=== PATIENT | male | born 1960 | race Caucasian/White ===

== ENCOUNTER 2019-09-22 22:16 | Observation (INO) | payer MEDICARE, SELFPAY ==
--- NOTE | 2019-09-22 22:14 | ECG_ITS ---
APPROVED REPORT Exam: Resting ECG HR:82 bpm ECG Measurements Heart Rate 82 AXES DC 140 P 60 QRSd 76 QRS 62 QT 376 T 58 QTc 439 <Conclusion> Normal sinus rhythm Normal ECG Electronically signed by : Kin Malone, 09/27/2019 13:55:10
[2019-09-22 22:19] VITALS: BP 165/104; PULSE 73; RESP 23; TEMP 36.9; O2SAT 98; BMI 19.8
--- NOTE | 2019-09-22 22:22 | HMH.EDGENADL ---
ED Disposition Clinical Impression: Precordial chest pain, Syncope and collapse Disposition: Admitted as Observation Condition on Discharge: Good - Critical Care Critical Care Time: No Attestation: On , the high probability of a clinically significant, sudden or life threatening deterioration of the following system(s) required my full and direct attention, intervention and personal management. The time I documented below is in addition to time spent performing reported procedures but includes the following listed in this critical care notation. Medical Decision Making - Medical Records Medical records reviewed: Yes: I reviewed the patient's medical records. - Be Inquiry Pt receiving controlled substance: No Vital Signs: 09/22/19 22:19 09/22/19 23:21 09/22/19 23:48 Temperature 98.4 F 98.1 F Temperature Source Oral Oral Pulse Rate 85 Pulse Rate [Right Brachial] 73 74 Respiratory Rate 23 18 18 Blood Pressure 152/89 H Blood Pressure [Right Arm] 165/104 H 135/100 H Blood Pressure Mean [Right Arm] 124 111 Blood Pressure Source Automatic Cuff Blood Pressure Source [Right Arm] Automatic Cuff Blood Pressure Position Sitting Blood Pressure Position [Right Arm] Sitting Supine 02 Sat by Pulse Oximetry 98 92 L Oxygen Delivery Method Room Air Room Air Room Air 09/23/19 00:16 Temperature 97.6 F Temperature Source Oral Pulse Rate Pulse Rate [Right Brachial] 78 Respiratory Rate 18 Blood Pressure Blood Pressure [Right Arm] 145/96 H Blood Pressure Mean [Right Arm] 112 Blood Pressure Source Blood Pressure Source [Right Arm] Automatic Cuff Blood Pressure Position Blood Pressure Position [Right Arm] Sitting 02 Sat by Pulse Oximetry 96 Oxygen Delivery Method Room Air - Lab Data Lab results reviewed: Yes: I reviewed the patient's lab results. Lab Results 09/22/19 21:15: WBC 9.7, RBC 5.81, Hgb 17.6, Hct 49.7, MCV 85.5, MCH 30.2, MCHC 35.4, RDW 13.8, Plt Count 228, MPV 7.7, Neut % (Auto) 66.3, Lymph % (Auto) 25.3, [place] % (Auto) 4.8, Eos % (Auto) 2.1, Baso % (Auto) 1.4, Neut # (Auto) 6.5, Lymph # (Auto) 2.5, [place] # (Auto) 0.5, Eos # (Auto) 0.2, Baso # (Auto) 0.1 09/22/19 21:15: Sodium 135 L, Potassium 5.0, Chloride 102, Carbon Dioxide 27, Anion Gap 11.0, BUN 20, Creatinine 1.00, Estimated Creat Clear 66, Estimated GFR 76, Est GFR ( Amer) 93, Glucose 96, Calcium 10.0, Troponin I < 0.01 Result diagrams: 09/22/19 21:15 09/22/19 21:15 Orders (Tests/Meds): ED MEDICATIONS Generic Name Dose Route Start Last Admin Trade Name Freq PRN Reason Stop Dose Admin Nicotine 21 mg 09/22/19 23:41 Nicoderm 21mg/24hr Patch TD 10/22/19 23:40 DAILYP PRN Nicotine Cravings Discontinued Medications Generic Name Dose Route Start Last Admin Trade Name Freq PRN Reason Stop Dose Admin Aspirin 324 mg 09/22/19 22:55 09/22/19 22:56 Aspirin 81mg Chewable Tablet PO 09/22/19 22:56 324 mg ONCE ONE Administration Carvedilol 6.25 mg 09/23/19 23:21 Coreg 6.25mg Tablet PO 09/23/19 23:22 ONCE ONE ORDERS Category Date Time Status Consult to Cardiology [CONS] Routine Cons 09/22/19 23:41 Active XR chest 2V Stat Exams 09/22/19 22:23 Taken Troponin I Q3H Lab 09/23/19 04:30 Ordered - Radiology Data #1 Image(s): Chest Image Reviewed: Yes I reviewed the patient's radiology image Preliminary Findings: Normal/NAD - ECG Data Tracing #1 EKG interpreted by Godwin Jordan MD: Rhythm: sinus Rate: 82 [place]: normal Ectopy: none Conduction: normal ST Segment Changes: none T Wave Changes: none Q Waves: none No evidence of acute ischemia or injury Normal electrocardiogram - Physician Consults Physician Consulted: Jayy Time: 23:20 Reason -: Admission Comment/Response: Agrees to admit the patient to the hospital. We discussed the patient's clinical information, including history, exam, laboratory and radiology results and ED course. Per hos
--- NOTE | 2019-09-22 22:23 | XR_ITS ---
PROCEDURE: XR CHEST 2V CLINICAL HISTORY: chest pain Smoker COMPARISON: No exams were available for comparison FINDINGS: The cardiomediastinal silhouette and pulmonary vascularity are within normal limits. Changes of COPD. No lobar consolidation or collapse No acute bony abnormalities. IMPRESSION: COPD otherwise negative Dictated by: Desean Smith MD 09/23/2019 06:33 Electronically signed by Desean Smith MD in [place] 09/23/2019 06:33
--- NOTE | 2019-09-22 22:26 | PC.NURSE ---
md at bedside. to put in additional orders after assess,ment
--- NOTE | 2019-09-22 22:35 | PC.NURSE ---
pt to xray
[2019-09-22 22:41] LABS: Basophils # 0.1 K/mm3 (0-0.2); Basophils % 1.4 % (0.1-2.0); Eosinophils # 0.2 K/mm3 (0.0-0.4); Eosinophils % 2.1 % (0.1-12.0); Hematocrit 49.7 % (42.0-52.0); Hemoglobin 17.6 g/dL (14.1-18.0); Lymphocytes # 2.5 K/mm3 (0.7-4.5); Lymphocytes % 25.3 % (10-50); Mean Corpuscular HGB Conc 35.4 g/dL (31.8-35.4); Mean Corpuscular Hemoglobin 30.2 pg (27.0-31.2); Mean Corpuscular Volume 85.5 fl (80-94); Mean Platelet Volume 7.7 fl (7.4-10.4); Monocytes # 0.5 K/mm3 (0.1-1.0); Monocytes % 4.8 % (1.7-9.3); Neutrophils # 6.5 K/mm3 (1.8-7.8); Neutrophils % 66.3 % (37.0-80.0); Platelet Count 228 K/mm3 (142-424); Red Blood Count 5.81 M/mm3 (4.60-6.20); Red Cell Distribution Width 13.8 % (11.5-17.5); White Blood Count 9.7 K/mm3 (4.8-10.8)
[2019-09-22 22:42] LABS: Chloride 102 mmol/L (98-107); Sodium 135 mmol/L (136-145)
[2019-09-22 22:45] LABS: Blood Urea Nitrogen 20 mg/dl (9-20); Carbon Dioxide 27 mmol/L (22.0-30.0); Creatinine Clearance Estimated 66 mL/min (50-200); Estimated Glomerular Filt Rate 76 ml/min (>60); GFR (African American) 93 ML/MIN (>60); Glucose 96 mg/dl (74-100)
[2019-09-22 23:11] LABS: Troponin I < 0.01 ng/ml (0.00-0.034)
--- NOTE | 2019-09-22 23:13 | PC.NURSE ---
paged dr chapman industrial relations representative for dr monzon (service) at this time. pt has no pcp.
[2019-09-22 23:21] VITALS: BP 135/100; PULSE 74; RESP 18; O2SAT 92
--- NOTE | 2019-09-22 23:21 | PC.NURSE ---
admitted to 208 per marina arnoldrn ambulatory. spoke with shannon in registration. advised of admit status, mulberry to mulberry, chest pain and syncope for diagnosis and observation.
[2019-09-22 23:48] VITALS: BP 152/89; PULSE 85; RESP 18; TEMP 36.7; O2SAT 98
[2019-09-23] VITALS (16 sets, daily range): BP systolic 96–145; BP diastolic 43–96; PULSE 60–80; RESP 16–20; TEMP 36.3–36.7; O2SAT 92–96; BMI 23.0
--- NOTE | 2019-09-23 | IR_ITS ---
APPROVED REPORT Patient Location: Inpatient PROCEDURES Left heart catheterization Left ventriculogram Selective coronary angiogram INDICATION Unstable angina, Syncope Informed consent was obtained prior to the procedure. COMPLICATIONS NONE Estimated Blood Loss: LESS THAN 10 ML TECHNIQUE One percent lidocaine used to anesthetize the right anterior aspect of the wrist. The right radial artery was accessed via the Seldinger technique. A 6 [place] sheath was placed in the right radial artery. 2.5 mg of verapamil, 800 mcg of nitroglycerin, 1mg Lidocaine and 5000 U Heparin were given through the arterial sheath. The trap catheter was also used to perform left heart catheterization, left ventriculogram and selective coronary angiogram. At the end of the procedure the sheath was removed good hemostasis was achieved using Traclet band, patient was transferred to the postop holding area in stable condition. ANGIOGRAPHIC RESULTS The left main artery Normal The left anterior descending artery Is proximally normal and has a mid vessel concentric 30% stenosis with mild 10% luminal irregularities The circumflex artery Nondominant large and normal The right coronary artery Large dominant and normal The [place] ventriculogram reveals Normal 65% The left ventricular end-diastolic pressure 10 mmHg IMPRESSION Mild mid LAD disease Normal ejection fraction Normal left ventricular diastolic pressure PLAN 1. Evaluation of noncardiac etiologies 2. Risk factor modification 3. Medical management Electronically signed by : Angel Cervantes, 09/23/2019 12:46:22
--- NOTE | 2019-09-23 00:16 | PC.NURSE ---
pt arrived to floor via wheelchair from ED
[2019-09-23 02:05] LABS: Troponin I < 0.01 ng/ml (0.00-0.034)
--- NOTE | 2019-09-23 03:55 | PC.NURSE ---
Pt to floor from ED via w/c at 0016. First thing pt asked, Where do you go smoke here? Discussed smoking policy as well as monitoring pt's heart could not be done if he wasn't on med/surg floor. Pt reported smoking < 1 ppd for 50 years, son who was in room, announced that was not true, he usually smokes at least 2 ppd. Lung coburn found with posterior left coburn having inspiratory wheezes. Deep, nonproductive smoker's cough noted. Advised cardiology consult in am and needed a shower for preparation which he agreed to. 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 In discussion concerning home medications, pt reported, I don't take any, I can't afford to get them. He is a poor historian, unable to given dates to diagnoses. Reported history of chest pain, They gave me nitro under my tongue 4 times and that was all they could give me. Those doctors up there said I had heart failure and I had a small heart attack. [place]. S1 S2 auscultated with no gallop or murmur noted. NSR on tele, no c/o chest pain since arriving to med/surg. Discussed admission folder and polices. Pt presently sleeping in supine position with no objective s/s of pain or discomfort, vital signs stable, monitoring continues.
[2019-09-23 05:14] LABS: Troponin I < 0.01 ng/ml (0.00-0.034)
--- NOTE | 2019-09-23 07:15 | P.CONPHA_ITS ---
[facility] Pharmacy VTE Monitoring - Patient Demographics Admission date: 09/22/19 Report Date: 09/23/19 Time: 07:15 Allergies/Adverse Reactions: Patient Allergies Codeine Allergy (Unknown, Uncoded 04/21/17 15:03) Height: 1.8 m Weight: 74.871 kg Patient Problems: Current Active Problems Precordial chest pain (Acute) Syncope and collapse (Acute) - VTE Risk Labs: VTE Related Lab Results Hgb 17.6 g/dL (14.1-18.0) 09/22/19 21:15 Hct 49.7 % (42.0-52.0) 09/22/19 21:15 Plt Count 228 K/mm3 (142-424) 09/22/19 21:15 BUN 20 mg/dl (9-20) 09/22/19 21:15 Creatinine 1.00 mg/dl (0.66-1.25) 09/22/19 21:15 Estimated Creat Clear 66 mL/min (50-200) 09/22/19 21:15 VTE Score: 3 VTE Risk Level: Low Risk - Prophylaxis VTE Prophylaxis Ordered?: Yes Types of VTE Prophylaxis: TEDS Knee High Location of Applied Device: Bilateral Lower Extremeties - VTE Diagnosis Confirmed Treatment or plan recommended: Continue Current Treatment
--- NOTE | 2019-09-23 07:44 | HMH.CNCARD ---
History of Present Illness Consult date: 09/23/19 Requesting physician: Wes Hope Consult reason: chest pain Chief complaint: chest pain, syncope Additional Medical History:: 1. Tobacco use, started age 8, smokes up to 1 pack/day A. COPD 2. Reported history of myocardial infarction in the past and congestive heart failure, documents unavailable 3. History of elevated blood pressure, on no medications 4. History of left eye trauma 1995 with subsequent loss of vision History of present illness: 58-year-old white male presented to the emergency department via private vehicle for episode of syncope. Patient was watching his son work on a car when the son reported looking over and seeing the patient on the ground face down. Patient relates he had about 30 minutes of intermittent sharp substernal chest pain without radiation or diaphoresis. He did relate some shortness of breath and nausea. EMS initially contacted and evaluate the patient on the scene but he refused transportation and evaluation at that point. Reportedly the son was able to talk him into coming in for further evaluation. ER evaluation showed initially a normal troponin and EKG with no acute ST segment changes. Chest x-ray showed COPD with no acute changes. Follow-up troponins overnight have also returned normal. Blood pressure in the ER was noted to be markedly elevated and patient was started on carvedilol therapy with subsequent significant drop in blood pressure. Patient denies any further chest pain overnight. Cardiology consulted for evaluation and recommendations. Patient denies history of diabetes but does relate a family history of heart disease in his mother. He has never been told he was hyperlipidemic. He has a history of elevated blood pressure but has never taken blood pressure medications due to the cost. [facility] History Medical History: Reports:: Congestive Heart Failure Denies:: Cancer, Diabetes Mellitus Type 1, Diabetes Mellitus Type 2, MRSA *Have you ever received a pneumonia vaccine?: Yes *Have you received a flu vaccine this season?: No (2017) Other Surgeries: Yes: EGD ( Quite a few years ago ) Amputation: No Fractures: Yes (right pinkie boxers fracture) - *Social History Educational Level: Attended High School Smoking Status: Current every day smoker Tobacco Type: cigarettes # Packs/Day (cigarettes): 1 Alcohol Intake: never *Occupational Status:: retired, disabled *Travel in the last 8 weeks: None Family Hx:: Cancer Meds Home Medications Medication Instructions Recorded Confirmed Type No Known Home Medications 09/22/19 09/22/19 History Allergies Allergy/AdvReac Type Severity Reaction Status Date / Time Codeine Allergy Unknown Uncoded 04/21/17 15:03 Review of Systems - *Cardiovascular Reports chest pain - *Respiratory Reports cough - *Gastrointestinal Denies loose stools, Denies nausea, Denies vomiting - *Genitourinary Denies blood in urine - *Musculoskeletal Reports back pain, Denies joint pain - *Neurologic Reports fainting, Denies tingling, Denies weakness Exam Vital signs and Labs for Last 24 Hours: Temp Pulse Resp BP Pulse Ox 97.4 F L 74 16 100/64 L 92 L 09/23/19 04:00 09/23/19 04:00 09/23/19 04:00 09/23/19 04:00 09/23/19 04:00 Laboratory Results - last 24 hr 09/22/19 21:15: WBC 9.7, RBC 5.81, Hgb 17.6, Hct 49.7, MCV 85.5, MCH 30.2, MCHC 35.4, RDW 13.8, Plt Count 228, MPV 7.7, Neut % (Auto) 66.3, Lymph % (Auto) 25.3, [place] % (Auto) 4.8, Eos % (Auto) 2.1, Baso % (Auto) 1.4, Neut # (Auto) 6.5, Lymph # (Auto) 2.5, [place] # (Auto) 0.5, Eos # (Auto) 0.2, Baso # (Auto) 0.1 09/22/19 21:15: Sodium 135 L, Potassium 5.0, Chloride 102, Carbon Dioxide 27, Anion Gap 11.0, BUN 20, Creatinine 1.00, Estimated Creat Clear 66, Estimated GFR 76, Est GFR ( Amer) 93, Glucose 96, Calcium 10.0, Troponin I < 0.01 09/23/19 01:30: Troponin I < 0.01 09/23/19 04:30: Troponin I < 0.01 I & O for Las
--- NOTE | 2019-09-23 07:55 | CA_ITS ---
APPROVED REPORT EXAM: Comprehensive 2D, Doppler, and color-flow Echocardiogram Road Machinery Inspector: Elizabeth Baeza RT(R) Ht: 5 ft 11 in Wt: 165lbs BSA: 1.94 BP: 100/64 mmHg Indications: CP, COPD, smoker, syncope, HTN, family history HD, hx of [place], CHF 2D Dimensions LVOT 1.95 cm (M/F) 1.5-2.5 M-Mode Dimensions RVDd 2.78 cm (0.9-2.6) LVDd 4.73 cm (3.5-5.7) LVDs 3.35 cm (3.5-5.7) IVSd 0.91 cm (0.6-1.1) PWd 0.76 cm (0.6-1.1) EF (Teich) 55.90% FS 29.20% EDV (Teich) 103.90 mL ESV (Teich) 45.80 mL LV Diastology E/A Ratio 0.58 Mitral Valve MV A Velocity 71.00 (40-130 cm/s) Left Ventricle Left atrium is mildly enlarged, left ventricle is normal size, mild concentric left ventricular hypertrophy, there is moderate hypokinesis involving the inferior basal wall. Grade 1 diastolic dysfunction seen without tissue Doppler evidence of raise left atrial pressure. Estimated ejection fraction approximately 50% Right Ventricle Right atrium and right ventricle are mildly enlarged with normal contractility. Aortic Valve Aortic valve is minimally thickened and fibrosed. There is no aortic stenosis or aortic insufficiency. Mitral Valve Mitral valve is grossly normal, there is mild mitral regurgitation. Tricuspid Valve Tricuspid valve is grossly normal, there is mild tricuspid regurgitation. Tricuspid regurgitation jet velocity is inadequate for calculation of the right ventricular systolic pressure. Pulmonic Valve Pulmonic valve is poorly visualized. Great Vessels Aortic root is normal size. Pericardium No significant pericardial effusion noted. Conclusion 1. Normal left ventricular size, mild concentric left ventricular hypertrophy, visually estimated ejection fraction 50% with segmental wall motion abnormality described above, grade 1 diastolic dysfunction seen without tissue Doppler evidence of raise left atrial pressure. 2. Mildly enlarged right ventricle with normal contractility. 3. Mild mitral and tricuspid regurgitation. 4. No significant pericardial effusion noted. Electronically signed by : Bharat Faust, 09/23/2019 13:12:41
--- NOTE | 2019-09-23 08:26 | HMH.HP ---
*Admission Date: 09/22/19 <DannCandelaria duarte 09/23/19 08:30> *Chief complaint: chest pain, syncope <DannGuicho duartea 09/23/19 08:30> *History of present illness: Mr. Keating is a 58-year-old male who presented to the emergency department via private vehicle for an episode of chest pain and syncope. According to the patient, he was watching his son fix a vehicle and he began having midsternal chest pain and got dizzy. He then fell to the ground. He is unsure if he completely lost consciousness. His son found him on the ground. He states he continued to have chest pain for approximately 30 minutes. It was accompanied by shortness of breath and nausea but no diaphoresis. The pain did not radiate to his arms or up his neck. He refused transport to the emergency room by EMS, therefore his son brought him to be evaluated. He had an EKG showing no acute ST segment changes and a chest x-ray showing COPD with nothing acute. All of his troponins have returned normal. His blood pressure in the ER was elevated and he was started on carvedilol. His blood pressure has improved. He states he has had no further chest pain. He states years ago he did have a similar episode of chest pain and presented to an emergency room. He was told at that time he had a heart attack but he never saw a screen making supervisor or followed up with anyone. He has also been told in the past that he has high blood pressure, hyperlipidemia, and CHF. He currently takes no medicines due to cost. At this time, he is pain-free. He has had no further episodes of chest pain. His shortness of breath is at baseline and is no longer nauseated. He does have a family history of CHF, cancer, and diabetes. Cardiology was consulted. <Candelaria Fischer 09/23/19 08:42> [facility] History I have reviewed the patient's past medical history: Yes <Candelaria Fischer 09/23/19 08:42> Medical History: Reports:: Congestive Heart Failure, Hyperlipidemia, Hypertension Denies:: Cancer, Diabetes Mellitus Type 1, Diabetes Mellitus Type 2, MRSA <Candelaria Fischer 09/23/19 08:42> *Have you ever received a pneumonia vaccine?: Yes <Candelaria Fischer 09/23/19 08:30> *Have you received a flu vaccine this season?: No (2018) <Candelaria Fischer 09/23/19 08:30> Other Surgeries: Yes: EGD ( Quite a few years ago ) <Candelaria Fischer 09/23/19 08:30> Amputation: No <Candelaria Fischer 09/23/19 08:30> Fractures: Yes (right 5th digit boxers fracture) <Candelaria Fischer 09/23/19 08:42> Comment: Left eye surgery - blind in left eye <Candelaria Fischer 09/23/19 08:42> - *Social History Educational Level: Attended High School <Candelaria Fischer 09/23/19 08:30> Smoking Status: Current every day smoker <Candelaria Fischer 09/23/19 08:30> Tobacco Type: cigarettes <Candelaria Fischer 09/23/19 08:30> # Packs/Day (cigarettes): 1 <Candelaria Fischer 09/23/19 08:30> Alcohol Intake: never <Candelaria Fischer 09/23/19 08:30> *Occupational Status:: retired, disabled <Candelaria Fischer 09/23/19 08:30> *Travel in the last 8 weeks: None <Candelaria Fischer 09/23/19 08:30> Family Hx:: Cancer, Diabetes, Other (CHF) <Candelaria Fischer 09/23/19 08:42> Review of Systems - Constitutional Denies body ache(s), Denies chills, Denies fever(s), Denies weakness <Candelaria Fischer 09/23/19 08:42> - Eyes Denies blurry vision, Denies double vision <Candelaria Fischer 09/23/19 08:42> - ENT Reports nasal congestion, Denies sore throat <Candelaria Fischer 09/23/19 08:42> - *Cardiovascular Reports chest pain, Reports shortness of breath, Denies excessive sweating, Denies leg swelling, Denies rapid, pounding, or irregular heartbeat <Candelaria Fischer 09/23/19 08:42> - *Respiratory Reports chest congestion, Reports cough, Reports shortness of breath <Candelaria Fischer 09/23/19 08:42> - *Gastrointestinal Reports nausea, Denies abdominal pain, Denies loose stools, Denies vomiting <Candelaria Fischer 09/23/19 08:42> - *Genitourinary Denies difficulty urinating, Denies painful ur
--- NOTE | 2019-09-23 16:31 | P.PN_ITS ---
Internal Medicine - PN: Subj *Date: 09/23/19 *Time: 16:31 Interval history: Patient had left heart cath today which showed non obstructing CAD, 30% blockage. Pt is anxious to go home. Exam Vital signs and Labs for Last 24 Hours: Temp Pulse Resp BP Pulse Ox 97.9 F 64 18 104/43 L 94 L 09/23/19 16:15 09/23/19 16:15 09/23/19 16:15 09/23/19 16:15 09/23/19 16:15 Laboratory Results - last 24 hr 09/22/19 21:15: WBC 9.7, RBC 5.81, Hgb 17.6, Hct 49.7, MCV 85.5, MCH 30.2, MCHC 35.4, RDW 13.8, Plt Count 228, MPV 7.7, Neut % (Auto) 66.3, Lymph % (Auto) 25.3, [place] % (Auto) 4.8, Eos % (Auto) 2.1, Baso % (Auto) 1.4, Neut # (Auto) 6.5, Lymph # (Auto) 2.5, [place] # (Auto) 0.5, Eos # (Auto) 0.2, Baso # (Auto) 0.1 09/22/19 21:15: Sodium 135 L, Potassium 5.0, Chloride 102, Carbon Dioxide 27, Anion Gap 11.0, BUN 20, Creatinine 1.00, Estimated Creat Clear 66, Estimated GFR 76, Est GFR ( Amer) 93, Glucose 96, Calcium 10.0, Troponin I < 0.01 09/23/19 01:30: Troponin I < 0.01 09/23/19 04:30: Troponin I < 0.01 I & O for Last 24 hours: Intake & Output 09/20/19 09/21/19 09/22/19 09/23/19 23:59 23:59 23:59 23:59 Intake Total 720 / 720 Balance 720 / 720 Weight 130 lb 165 lb 1 oz - Constitutional no acute distress (alert, Holter monitor leads are being placed now) Assessment and Plan (1) Precordial chest pain Current visit: Yes Status: Acute Category: Medical Code(s): R07.2 - Precordial pain (2) Syncope and collapse Current visit: Yes Status: Acute Category: Medical Code(s): R55 - Syncope and collapse (3) Elevated blood pressure reading Current visit: Yes Status: Acute Category: Medical Code(s): R03.0 - Elevated blood-pressure reading, without diagnosis of hypertension (4) Tobacco use Current visit: Yes Status: Acute Category: Social Hx Code(s): Z72.0 - Tobacco use (5) COPD (chronic obstructive pulmonary disease) Current visit: Yes Status: Acute Category: Medical Code(s): J44.9 - Chronic obstructive pulmonary disease, unspecified - Assessment and plan all Dx Assessment and Plan for all problems:: Cardiology wants to discharge patient today after Holter monitor is placed. Will continue low dose Toprol XL, f/u with cardiology in 2 weeks.
--- NOTE | 2019-09-23 16:34 | HMH.DCSUM ---
General - General Admission date:: 09/23/19 Discharge date: 09/23/19 HPI HPI: Mr. Keating is a 58-year-old male who presented to the emergency department via private vehicle for an episode of chest pain and syncope. According to the patient, he was watching his son fix a vehicle and he began having midsternal chest pain and got dizzy. He then fell to the ground. He is unsure if he completely lost consciousness. His son found him on the ground. He states he continued to have chest pain for approximately 30 minutes. It was accompanied by shortness of breath and nausea but no diaphoresis. The pain did not radiate to his arms or up his neck. He refused transport to the emergency room by EMS, therefore his son brought him to be evaluated. He had an EKG showing no acute ST segment changes and a chest x-ray showing COPD with nothing acute. All of his troponins have returned normal. His blood pressure in the ER was elevated and he was started on carvedilol. His blood pressure has improved. He states he has had no further chest pain. He states years ago he did have a similar episode of chest pain and presented to an emergency room. He was told at that time he had a heart attack but he never saw a instrumentation technologist or followed up with anyone. He has also been told in the past that he has high blood pressure, hyperlipidemia, and CHF. He currently takes no medicines due to cost. At this time, he is pain-free. He has had no further episodes of chest pain. His shortness of breath is at baseline and is no longer nauseated. He does have a family history of CHF, cancer, and diabetes. Cardiology was consulted. Hospital Course Hospital Course: The patient was given a dose of Coreg with some improvement in his blood pressure and was started on metoprolol 25 mg daily. Cardiology felt he would need a heart cath and this was performed. It showed only mild mid LAD disease with a normal ejection fraction. They recommended risk factor modification. His echo showed moderate inferior wall hypokinesis with a normal EF of 50%. Cardiology recommended both losartan 25 mg daily and metoprolol succinate ER 25 mg daily along with an aspirin 81 mg daily for coronary artery disease. They also recommended a 48-hour Holter monitor to assess for arrhythmias as the source of his syncope. The patient's pressures were very low after his heart cath and it was decided to discharge him only on metoprolol and aspirin until cardiology follow-up. He will see cardiology in 1 to 2 weeks. Objective Vital signs: Temp Pulse Resp BP Pulse Ox 97.9 F 64 18 104/43 L 94 L 09/23/19 16:15 09/23/19 16:15 09/23/19 16:15 09/23/19 16:15 09/23/19 16:15 Narrative: - *Routine HEENT Exam Head: Present: normocephalic Eye: Present: EOMI, PERRL ENT: Present: mucous membranes moist - *Routine Neck Exam Present: supple. Absent: lymphadenopathy - *Routine Respiratory Exam Present: CTA bilaterally - *Routine Cardiovascular Exam Present: RRR - *Routine Abdominal Exam Present: soft, normoactive bowel sounds. Absent: tenderness - *Routine Extremities Exam Absent: cyanosis, clubbing, edema - *Routine Skin Exam Present: warm. Absent: rash - *Routine Neurological Exam Present: alert, oriented X3 Results Labs on day of discharge: Labs from last 24 hours 09/23/19 09/23/19 09/22/19 04:30 01:30 21:15 WBC RBC Hgb Hct MCV MCH MCHC RDW Plt Count MPV Neut % (Auto) Lymph % (Auto) [place] % (Auto) Eos % (Auto) Baso % (Auto) Neut # (Auto) Lymph # (Auto) [place] # (Auto) Eos # (Auto) Baso # (Auto) Sodium 135 L Potassium 5.0 Chloride 102 Carbon Dioxide 27 Anion Gap 11.0 BUN 20 Creatinine 1.00 Estimated Creat Clear 66 Estimated GFR 76 Est GFR ( Amer) 93 Glucose 96 Calcium 10.0 Troponin I < 0.01 < 0.01 < 0.
--- NOTE | 2019-09-23 18:24 | PC.NURSE ---
pt stated he wanted to go home . tolerated heart cath well. medications were sent to the clinic pharmacy. holter monitor in place. pt was instructed to wear holter monitor for 48 hours. pt will need to follow up with cardiology in 2 weeks. dressing to rt cath site c/d/i. pt has not had any chest pain or soa t/o the shift.
== END 2019-09-23 17:32 | disposition home or self-care (01) ==
LOC: ER 23:20 → 2ND 23:34
PROVIDERS: Internal Medicine; Admitting Provider Family Medicine; Emergency Provider Emergency Medicine; PCP Family Medicine; Visit Provider Family Medicine
DX: R07.2 Precordial pain (principal); R55 Syncope and collapse; Z72.0 Tobacco use; J44.9 Chronic obstructive pulmonary disease, unspecified; I25.10 Atherosclerotic heart disease of native coronary artery without angina pectoris; I10 Essential (primary) hypertension
CPT/HCPCS: 36415; 71046; 80048; 84484; 85025; 93005; 93225; 93306; 93458; 99152; 99284; C1725; C1769; G0378; J1644; J2405; Q9967

== ENCOUNTER 2023-06-21 02:43 | Emergency (ER) | payer MEDICARE, SELFPAY ==
[2023-06-21 02:43] VITALS: BP 158/98; PULSE 92; RESP 20; TEMP 36.9; O2SAT 97; BMI 22.3
[2023-06-21 02:50] VITALS: BP 158/98; PULSE 95; O2SAT 97
--- NOTE | 2023-06-21 03:02 | PC.NURSE ---
in room talking with patient at this time.
--- NOTE | 2023-06-21 03:08 | HMH.EDGENADL ---
Discharge Plan Disposition Patient Disposition: Home, Self-Care Prescriptions Prescriptions: New amoxicillin-pot clavulanate 875-125 mg tablet 1 tab PO BID 7 Days Qty: 14 0RF No Action metoprolol succinate 25 MG tablet extended release 24 hr 25 mg PO DAILY Qty: 30 0RF aspirin 81 MG tablet,delayed release (DR/EC) 81 mg PO DAILY Qty: 30 0RF Referrals Follow up/Referrals: Provider,Referral, MD [Primary Care Provider] - See instructions Activity Restrictions/Add. Instructions Additional Instructions/Restrictions: Please take Tylenol and ibuprofen as needed for pain. Please take antibiotics as prescribed for treatment of infection. Please see a dentist as soon as possible for definitive treatment. If your symptoms worsen or do not improve, please return to the ER. Clinical Impressions Clinical Impression: Dental infection, Pain, dental, Right facial swelling Discharge ED Provider: Chao Leblanc Adult HPI General Chief complaint: Dental/Oral Stated complaint: pain in tooth Time Seen by Provider: 06/21/23 02:50 Mode of Arrival: Ambulatory Source of Information: Patient Limitations: No Limitations Description of Symptoms (Recalled from ER Triage Doc. by RN): Patient reports dental and jaw pain to upper right jaw that started 2-3 days ago and has gotten progressively worse. Patient reports that he has never had problems with this particular tooth before. History of Present Illness HPI narrative: 62-year-old male with history of COPD presents with dental pain. He reports right upper jaw pain that has been present for the last 2 to 3 days and has been worsening. He reports facial tenderness over the right side. He denies any purulent drainage. He has history of chronic poor dentition. He does not have a regular dentist. He denies any fevers. Related Data Previous Rx's Medication Instructions Recorded aspirin 81 mg tablet,delayed 81 mg PO DAILY ##30 09/23/19 release metoprolol succinate 25 mg 25 mg PO DAILY ##30 09/23/19 tablet,extended release 24 hr amoxicillin 875 mg-potassium 1 tab PO BID 7 days #14 tabs 06/21/23 clavulanate 125 mg tablet Allergies Allergy/AdvReac Type Severity Reaction Status Date / Time codeine Allergy Unknown Verified 06/21/23 02:55 allergy reaction [facility] Disclaimer: The information contained in this section may have been updated after the patient was seen, as this information can be updated by other users. Social History Smoking Status: Current every day smoker tobacco type: cigarettes packs per day: 1 alcohol intake: never current occupational status: retired and disabled Travel in the last 8 weeks: None caffeine: Yes ROS Obtained: Yes All systems reviewed & no additional complaints except as documented Physical Exam General General appearance: alert and in no apparent distress Head Head exam: atraumatic and normocephalic Eye Eye exam: Present normal appearance, PERRL and EOMI ENT ENT exam: Present other (Extremely poor dentition. Mild swelling of the right upper cheek. No fluctuant lesion noted on palpation of the mouth. Severe tenderness to palpation of the remaining right maxillary teeth. All remaining teeth are rotten.) Neck Neck exam: Present normal inspection and full ROM; Absent lymphadenopathy Chest Chest inspection: Present normal inspection and symmetric chest wall rise; Absent tenderness Respiratory Respiratory exam: Present normal lung sounds bilaterally; Absent respiratory distress Cardiovascular Cardiovascular exam: Present regular rate and normal rhythm Abdominal Exam Abdominal exam: Present soft; Absent distention, tenderness or guarding Extremities Exam Extremities exam: Present normal inspection; Absent edema or joint swelling Back Exam Back exam: Present normal inspection; Absent tenderness Neurological Exam Neurological exam: Present alert and oriented X3; Absent motor sensory deficit Psychiatric Psychiatric exam: Present normal affect and normal mood Skin Skin exam: Present warm, dry and normal color Lymphatic Lymphatic Findings: no adenopathy Medical Decision Making Medical Records Medical records reviewed: Yes I reviewed the patient's medical records. Be Inquiry Pt receiving controlled substance: No Be was queried for this patient: No Vital Signs: 06/21/23 02:43 Temperature 98.5 F Temperature Source Oral Pulse Rate [Left Radial] 92 H Respiratory Rate 20 Blood Pressure [Right Arm] 158/98 H Blood Pressure Mean [Right Arm] 118 Blood Pressure Source [Right Arm] Automatic Cuff Blood Pressure Position [Right Arm] Sitting 02 Sat by Pulse Oximetry 97 Oxygen Delivery Method Room Air Lab Data Lab results reviewed: Yes I reviewed the patient's lab results. Orders (Tests/Meds): ED MEDICATIONS Generic Name Dose Route Start Last Admin Trade Name Freq PRN Reason Stop Dose Admin Acetaminophen 1,000 mg 06/21/23 03:06 Acetaminophen 500mg Tab PO 06/21/23 03:07 ONCE ONE Amoxicillin/Clavulanate Potassium 1 each 06/21/23 03:06 Amoxicillin/Clavulanate Potassium 875/125mg Tablet PO 06/21/23 03:07 ONCE ONE Ketorolac Tromethamine 30 mg 06/21/23 03:06 Ketorolac 30mg/Ml Vial IM 06/21/23 03:07 ONCE ONE Oxycodone HCl 5 mg 06/21/23 03:06 Oxycodone 5mg Immediate Release Tablet PO 06/21/23 03:07 ONCE ONE Medical Decision Narrative: 62-year-old male with history of COPD presents with 2 to 3 days of worsening right maxillary tooth pain. Differential diagnosis includes but not limited to pulpitis, dental abscess, Quinton's, Lemierre's, odontogenic infection. On exam patient has mild erythema and swelling, no fluctuant lesion noted. No evidence of a deep space infection. I offered patient a dental block for symptomatic relief, patient reports that he does not like needles and would prefer to avoid it if possible. I gave him a dose of Augmentin in ED as well as Tylenol, Toradol and oxycodone 5 mg for acute pain relief. I discharged him with a prescription for Augmentin. Patient instructed to follow-up with dentistry as soon as possible. Procedures Risk/Benefits of Procedure(s) Were Explained: Yes Critical Care Critical Care Time Critical Care Time: No
[2023-06-21] MEDS: KETOROLAC 30MG/ML VIAL 30 MG IM (03:15)
[2023-06-21] MEDS: ACETAMINOPHEN 500MG TAB 1000 MG PO (03:15)
[2023-06-21] MEDS: OXYCODONE 5MG IMMEDIATE RELEASE TABLET 5 MG PO (03:16)
[2023-06-21] MEDS: AMOXICILLIN/CLAVULANATE POTASSIUM 875/125MG TABLET 1 EACH PO (03:16)
[2023-06-21 03:20] VITALS: BP 158/98; PULSE 90; RESP 20; TEMP 36.9; O2SAT 97
== END 2023-06-21 03:30 | disposition home or self-care (01) ==
PROVIDERS: Emergency Provider Emergency Medicine
DX: R68.84 Jaw pain (principal); R22.0 Localized swelling, mass and lump, head; K04.7 Periapical abscess without sinus; J44.9 Chronic obstructive pulmonary disease, unspecified; F17.210 Nicotine dependence, cigarettes, uncomplicated
CPT/HCPCS: 96372; 99283

== ENCOUNTER 2023-08-11 06:53 | Day surgery (SDC) | payer MEDICARE, MEDICAID, SELFPAY ==
[2023-08-11 07:19] VITALS: BMI 22.6
[2023-08-11 07:21] VITALS: BP 172/94; PULSE 67; RESP 17; TEMP 36.4; O2SAT 97
[2023-08-11] MEDS: CYCLOPENTOLATE 2% OPHTH SOLN 2ML BOTTLE OP ×3 (07:23→07:33)
[2023-08-11] MEDS: PHENYLEPHRINE 2.5% OPHTH SOLN 2ML 0.0500000000000000028 ML OP ×3 (07:23→07:33)
[2023-08-11] MEDS: TETRACAINE 0.5% OPTH SOL 15ML OP ×6 (07:23→08:33)
[2023-08-11 08:48] VITALS: BP 159/100; RESP 18; TEMP 36.6; O2SAT 97
[2023-08-11 08:53] VITALS: BP 161/88; PULSE 65; RESP 18; TEMP 36.6; O2SAT 97
[2023-08-11 08:58] VITALS: BP 159/97; PULSE 74; RESP 18; TEMP 36.6; O2SAT 95
[2023-08-11] MEDS: MIDAZOLAM 2MG/2ML VIAL 2 MG (08:59)
[2023-08-11] MEDS: TIMOLOL 0.5% OPTH SOLN 5ML OP (09:00)
[2023-08-11] MEDS: SODIUM CHLORIDE 0.9% 10ML FLUSH SYRINGE 10 ML IV (09:00)
[2023-08-11] MEDS: TOBRAMYCIN/DEX OPTH SUSP 2.5ML OP (09:00)
[2023-08-11] MEDS: LIDOCAINE 1% PF 2ML AMPULE 2 ML IJ (09:00)
[2023-08-11 09:06] VITALS: BP 159/97; PULSE 71; RESP 18; TEMP 36.6; O2SAT 96
--- NOTE | 2023-08-11 09:11 | P.PCN_ITS ---
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 The patient reports that this interferes with ADLs such as reading, watching TV and/or driving or the vision is like looking through a foggy haze and is very troubling. The patient was examined and found to have a visually significant cataract with best corrected vision of 20/400 by refraction and/or glare testing. Treatment options, risks and benefits were explained and the patient elected to have cataract surgery in an attempt to improve their vision. The patient had the eye anesthetized with topical tetracaine, the eye ways prepped and draped in the usual fashion for cataract surgery. A paracentesis and a temporal keratotomy were made. 0.2cc of 1% lidocaine PF was placed into the anterior chamber. And aqueous/viscoelastic exchange was done and a 360 degree capsulorexis was performed. Through hydrodissection and delineation with BSS on a cannula was done. The lens nucleus was phecoemulsified with CDE of 8.24. Residual cortical material was removed using automated I&A The capsular bag was deepened with viscoelastica and a PCIOL was placed in the capsular bag with good centration and stability. Residual viscoelastic was removed using automated I&A. The keratotomy incision was hydrated with BSS on a cannula. The wound were checked and found to be water tight. IOP was checked digitally and adjusted as needed so as not to be too high. 1 drop of timolol 0.5%, ofloxacin, prednisolone acetate and ketorolac was instilled and eye shield taped over the eye. The patient was taken to recovery in good condition and will be seen postoperatively.
[2023-08-11 09:12] VITALS: BP 150/98; PULSE 69; RESP 16; TEMP 36.2; O2SAT 97
== END 2023-08-11 09:25 | disposition home or self-care (01) ==
PROVIDERS: PCP Family Medicine; Visit Provider Ophthalmology
DX: H02.831 Dermatochalasis of right upper eyelid (principal); H53.149 Visual discomfort, unspecified; H53.69 Other night blindness; H25.811 Combined forms of age-related cataract, right eye
CPT/HCPCS: 66982; V2632

== ENCOUNTER 2024-05-09 19:37 | Emergency (ER) | payer MEDICARE, MEDICAID, SELFPAY ==
--- NOTE | 2024-05-09 19:37 | CT_ITS ---
PROCEDURE INFORMATION: Exam: CTA Chest With Contrast Exam date and time: 05/09/2024 9:12 PM Age: 63 years old Clinical indication: Shortness of breath; Additional info: Dyspnea TECHNIQUE: Imaging protocol: Computed tomographic angiography of the chest with contrast. Exam focused on the arteries. 3D rendering (Not supervised by radiologist): MIP and/or 3D reconstructed images were created by the technologist. Radiation optimization: All CT scans at this facility use at least one of these dose optimization techniques: automated exposure control; mA and/or kV adjustment per patient size (includes targeted exams where dose is matched to clinical indication); or iterative reconstruction. Contrast material: ISOVUE; Contrast volume: 70 ml; Contrast route: INTRAVENOUS (IV); COMPARISON: CR XR CHEST 2V 09/22/2019 10:26 PM FINDINGS: Pulmonary arteries: There is no evidence for clinically relevant pulmonary arterial filling defect. Tiny distal filling defects may be present but are of dubious clinical significance. Aorta: There is atherosclerotic disease of the visualized aorta and its major branch vessels. Lungs: There are scattered areas of emphysema throughout the lungs. Scattered areas of bronchial wall thickening which are likely chronic inflammatory. A few areas of subpleural reticulation are noted, nonspecific. There are scattered calcified granulomas in the lungs which most likely reflect prior granulomatous disease. Pleural spaces: Unremarkable. No pneumothorax. No pleural effusion. Heart: Unremarkable. No cardiomegaly. No pericardial effusion. Coronary arteries: There is mild coronary atherosclerotic disease/calcification although evaluation is limited secondary to the non gated nature of the study. Lymph nodes: There are mildly prominent mediastinal lymph nodes which are nonenlarged. There are calcified mediastinal lymph nodes likely reflecting prior granulomatous disease. Spleen: There are multiple calcifications in the spleen most likely reflects small granulomas. Bones/joints: There is diffuse degenerative disease of the visualized osseous structures. Soft tissues: Unremarkable. Other findings: Motion artifact mildly limits evaluation. IMPRESSION: 1. No dense parenchymal consolidation, pleural effusion, or pneumothorax. 2. No evidence for clinically relevant pulmonary arterial filling defect. COMMENTS: The presence of pulmonary emphysema on CT is an independent risk factor for lung cancer. In the absence of a history or active diagnosis of lung cancer, it is recommended that this patient with emphysema be evaluated for enrollment in a low dose CT lung cancer screening program.
--- NOTE | 2024-05-09 19:37 | [facility].EDCP ---
Discharge Plan Disposition Patient Disposition: Admitted Condition: Serious Prescriptions Prescriptions: New doxycycline hyclate 100 mg capsule 100 mg PO BID 10 Days Qty: 20 0RF prednisone 50 mg tablet 50 mg PO DAILY 5 Days Qty: 5 0RF albuterol sulfate 90 mcg/actuation HFA aerosol inhaler 1 inh inhalation Q4H PRN (Reason: shortness of breath or wheezing) Qty: 8.5 0RF Trelegy Ellipta 200-62.5-25 mcg blister with device 1 inh inhalation Q24H Qty: 60 0RF Referrals Follow up/Referrals: Provider,Referral, MD [Primary Care Provider] - See instructions Activity Restrictions/Add. Instructions Additional Instructions/Restrictions: Follow-up with your PCP within 48 hours for recheck. I have sent prescriptions into your pharmacy for a COPD inhaler a rescue inhaler steroids and an antibiotic. Please pick them up tomorrow. Return to ER for any worsening signs or symptoms as needed. Clinical Impressions Clinical Impression: Acute exacerbation of chronic obstructive pulmonary disease, Acute hypoxemic respiratory failure, Hypomagnesemia Print Language Print Language: Kinyarwanda Discharge ED Provider: Rosendo Marks HPI <NAVEEN Umaña - Last Filed: 05/09/24 21:49> General Chief Complaint: Shortness of Breath/Dyspnea Stated Complaint: SOA Time Seen by Provider: 05/09/24 19:44 History of Present Illness HPI narrative: Patient presents for evaluation of cough and dyspnea. Patient states that he has had a cough for approximately 2 months however last 24 hours has gotten significantly worse. Patient does have a past medical history of COPD but is not on home O2. Patient has not seen a doctor in almost a year. Patient denies any fever chills hemoptysis hematochezia melena nausea vomiting diarrhea. Denies any chest pain. Related Data Previous Rx's ?Medication ?Instructions ?Recorded albuterol sulfate 90 mcg/actuation 1 inh inhalation Q4H PRN shortness 05/09/24 aerosol inhaler of breath or wheezing #8.5 grams doxycycline hyclate 100 mg capsule 100 mg PO BID 10 days #20 caps 05/09/24 fluticasone fur. 200 mcg-umeclid 1 inh inhalation Q24H #60 ea 05/09/24 62.5 mcg-vilant 25 mcg inhalat.powder (Trelegy Ellipta) prednisone 50 mg tablet 50 mg PO DAILY 5 days #5 tabs 05/09/24 Allergies Allergy/AdvReac Type Severity Reaction Status Date / Time codeine Allergy Unknown Verified 05/09/24 20:11 allergy reaction PFS <NAVEEN Umaña - Last Filed: 05/09/24 21:49> [facility] Disclaimer: The information contained in this section may have been updated after the patient was seen, as this information can be updated by other users. Medical History (Updated 05/09/24 @ 21:09 by NAVEEN Umaña) Pneumonia History of COVID-19 COPD (chronic obstructive pulmonary disease) History of gastroesophageal reflux (GERD) Hyperlipidemia History of anemia Cataract Surgical History (Updated 08/11/23 @ 07:17 by Jocy Alexandre, RN) History of cataract surgery Family History (Updated 08/11/23 @ 07:17 by Jocy Alexandre, RN) Other Family history of cancer Social History (Updated 08/11/23 @ 07:18 by Jocy Alexandre RN) Smoking Status: Current every day smoker tobacco type: cigarettes packs per day: 1 alcohol intake: never current occupational status: disabled Travel in the last 8 weeks: None caffeine: Yes Have you lived/traveled outside [place] in past 30 days?: No Contact w/someone who lives/traveled outside US past 30 days?: No Exposure to someone with infectious disease in past 14 days?: No Do you have a fever (greater than 100.4 F or 38 C)?: No Have you tested positive for COVID-19: No Exposed to someone with COVID-19 in past 14 days?: No Do you have a sore throat?: No Do you have a cough?: No Do you have any weakness?: No Do you have any diarrhea?: No Are you experiencing any unusual bleeding?: No Do you have any muscle aches/pain?: No Do you have any abdominal pain?: No Are you experiencing loss of taste or smell?: No Other Medical History Have you received the Flu Vaccine for this season: No Have you received the Pneumonia Vaccine: No <NAVEEN Umaña - Last Filed: 05/09/24 21:49> ROS Obtained: Yes Systems reviewed as appropriate & no additional complaints except as documented Physical Exam <NAVEEN Umaña - Last Filed: 05/09/24 21:49> General General appearance: alert and in no apparent distress Respiratory Respiratory exam: Present wheezes; Absent normal lung sounds bilaterally, respiratory distress or accessory muscle use Cardiovascular Cardiovascular exam: Present regular rate Neurological Exam Neurological exam: Present alert and oriented X3 HEART Score <NAVEEN Umaña - Last Filed: 05/09/24 21:49> HEART Score HEART Score assessment performed?: No Critical Care <NAVEEN Umaña - Last Filed: 05/09/24 21:49> Critical Care Time Critical Care Time: Yes Attestation: On 05/09/24, the high probability of a clinically significant, sudden or life threatening deterioration of the following system: Cardiopulmonary; required my full and direct attention, intervention and personal management. The time I documented below is in addition to time spent performing reported procedures but includes the following listed in this critical care notation. Total Time Total Critical Care Time: 30 Medical Decision Making <NAVEEN Umaña - Last Filed: 05/09/24 21:49> Medical Records Medical records reviewed: Yes I reviewed the patient's medical records. Be Inquiry Pt receiving controlled substance: No Vital Signs Vital Signs: 05/09/24 19:40 05/09/24 20:00 05/09/24 20:38 Temperature 97.8 F Temperature Source Oral Pulse Rate 98 H 102 H Pulse Rate [Left] 96 H Respiratory Rate 18 Blood Pressure 153/92 H 140/71 Blood Pressure [Right Arm] 150/94 H Blood Pressure Mean [Right Arm] 112 Blood Pressure Source [Right Arm] Automatic Cuff Blood Pressure Position [Right Arm] Sitting 02 Sat by Pulse Oximetry 97 94 L 92 L Oxygen Delivery Method Room Air 05/09/24 21:00 05/09/24 21:30 05/09/24 21:54 Temperature 98.2 F Temperature Source Pulse Rate 97 H 108 H 95 H Pulse Rate [Left] Respiratory Rate 18 Blood Pressure 126/67 145/102 H 145/102 H Blood Pressure [Right Arm] Blood Pressure Mean [Right Arm] Blood Pressure Source [Right Arm] Blood Pressure Position [Right Arm] 02 Sat by Pulse Oximetry 90 L 94 L Oxygen Delivery Method Room Air Lab Data Lab results reviewed: Yes I reviewed the patient's lab results. Labs: Lab Results 05/09/24 19:40: WBC 9.1, RBC 5.40, Hgb 15.8, Hct 44.3, MCV 82.0, MCH 29.3, MCHC 35.7 H, RDW 13.1, Plt Count 198, MPV 9.7, Neut % (Auto) 81.2 H, Lymph % (Auto) 10.0, [place] % (Auto) 7.1, Eos % (Auto) 0.5, Baso % (Auto) 0.7, Neut # (Auto) 7.4, Lymph # (Auto) 0.9, [place] # (Auto) 0.7, Eos # (Auto) 0.1, Baso # (Auto) 0.1, PT 11.0, INR 0.98, Sodium 136, Potassium 4.2, Chloride 103, Carbon Dioxide 22, Anion Gap 15.2 H, BUN 17, Creatinine 0.90, Estimated Creat Clear 76, Estimated GFR 85, Est GFR ( Amer) 103, Glucose 87, Calcium 9.5, Magnesium 1.4 L, Total Bilirubin 1.1, AST 29, ALT 20, Alkaline Phosphatase 79, Troponin I < 0.01, Total Protein 7.3, Albumin 4.2, Globulin 3.1, Albumin/Globulin Ratio 1.4, HIV Ag/Ab Combo Qual Negative 05/09/24 19:56: VBG pH 7.39, VBG pCO2 36.5, VBG pO2 49.2 H, VBG HCO3 21.4 L, VBG Total CO2 22.5 L, VBG O2 Saturation 86.6 H, VBG Base Excess -3.6 L, VBG Lactic Acid 1.7 05/09/24 20:51: SARS-CoV-2 (PCR) Not detected, Influenza A Untype (PCR) Not detected, Influenza Type B (PCR) Not detected 05/09/24 19:40 05/09/24 19:40 Response Orders (Tests/Meds): ED MEDICATIONS Generic Name Dose Route Start Last Admin Trade Name Freq PRN Reason Stop Dose Admin Magnesium Sulfate 2 gm in 50 mls @ 50 mls/hr 05/09/24 21:10 05/09/24 21:25 Magnesium Sulfate 2gm/50ml Premix IV 05/09/24 22:09 50 mls/hr ONCE ONE Administration Discontinued Medications Generic Name Dose Route Start Last Admin Trade Name Freq PRN Reason Stop Dose Admin Acetaminophen 1,000 mg 05/09/24 20:14 05/09/24 20:18 Acetaminophen 500mg Tab PO 05/09/24 20:15 1,000 mg ONCE ONE Administration Albuterol/Ipratropium 9 ml 05/09/24 19:37 05/09/24 19:48 Ipratropium/Albuterol 3 Ml Neb IH 05/09/24 19:38 9 ml ONCE ONE Administration Diphenhydramine HCl 50 mg 05/09/24 21:04 05/09/24 21:15 Diphenhydramine 50mg/Ml Vial IV 05/09/24 21:05 50 mg ONCE ONE Administration Doxycycline Hyclate 100 mg 05/09/24 21:46 05/09/24 21:55 Doxycycline Hycl 100 Mg Tablet PO 05/09/24 21:47 100 mg ONCE ONE Administration Ibuprofen 800 mg 05/09/24 20:14 05/09/24 20:18 Ibuprofen 400 Mg Tablet PO 05/09/24 20:15 800 mg ONCE ONE Administration Iopamidol 70 ml 05/09/24 21:06 05/09/24 21:15 Iopamidol-370 (76%);100ml Bottle IV 05/09/24 21:07 70 ml ONCE ONE Administration Methocarbamol 500 mg 05/09/24 21:04 05/09/24 21:15 Methocarbamol 500mg Tablet PO 05/09/24 21:05 500 mg ONCE ONE Administration Prochlorperazine Edisylate 5 mg 05/09/24 21:04 05/09/24 21:16 Prochlorperazine 10mg/2ml Vial IV 05/09/24 21:05 5 mg ONCE ONE Administration Sodium Chloride 50 ml 05/09/24 21:06 05/09/24 21:14 0.9 % Sodium Chloride 50 Ml Vial IV 05/09/24 21:07 50 ml ONCE ONE Administration Sodium Chloride 10 ml 05/09/24 21:06 05/09/24 21:15 Sodium Chloride 0.9% 10ml Syr (Rad Only) IV 05/09/24 21:07 10 ml ONCE ONE Administration ORDERS Category Date Time Status CT angio chest PE protocol Stat Cat Scan 05/09/24 19:37 Completed BNP [NT Pro Brain Natriuretic Pep.] Stat Lab 05/09/24 19:40 Received CBC w/Auto Diff [Complete Blood Count Auto Diff] Stat Lab 05/09/24 19:40 Completed CMP [Comprehensive Metabolic Panel] Stat Lab 05/09/24 19:40 Completed HIV Combo Stat Lab 05/09/24 19:40 Completed Hep C Ab with Reflex to RNA Stat Lab 05/09/24 19:40 Received INR [Prothrombin Time INR] Stat Lab 05/09/24 19:40 Completed Magnesium Stat Lab 05/09/24 19:40 Completed Procalcitonin Stat Lab 05/09/24 19:40 Received Rapid PCR Covid and Flu A/B Stat Lab 05/09/24 20:51 Completed Trop I [Troponin I] Stat Lab 05/09/24 19:40 Completed Troponin I Q3H Lab 05/09/24 22:45 Ordered Troponin I Q3H Lab 05/10/24 01:45 Ordered VBG [Venous Blood Gas] Stat RT 05/09/24 19:56 Completed MDM Narrative Medical Decision Narrative: In summary patient is a 63-year-old male who presents to the emergency department for evaluation of dyspnea. Patient is initially hemodynamically stable with a blood pressure 150/94 pulse 96 breathing 18 times a minute satting at 97% on room air upon arrival, with a temperature of 97.8. Physical exam reveals diminished breath sounds in all 4 coburn with tight lung sounds within expiratory wheezes in all 4 coburn diminished at the bases but no increased work of breathing or accessory muscle use. Heart sounds normal patient is normal sinus rhythm on the bedside monitor. Differential diagnosis includes COPD exacerbation versus viral or bacterial pneumonia versus ACS etc. Initial workup will be conducted with hematologic labs VBG CT PE protocol respiratory swabs. Initial interventions include DuoNeb and patient received 125 Solu-Medrol via EMS prior to arrival. Initial workup reviewed by me shows his white count is 9.1 with no left shift, INR 0.98, VBG shows a pH 7.39 with a venous blood gas lactic acid 1.7 and a pCO2 of 36.5, CMP is significant for a gap of 15.2 and a mag of 1.4 the remainder of his hematologic labs are nonactionable. Upon repeat evaluation patient had improvement in his breath sounds and he now has good air movement however his oxygen saturation has stayed around 89 despite steroids and breathing treatments. Upon reevaluation patient is now satting at 92% on room air has no increased work of breathing. I had interactive discussion with hospital medicine regarding patient management and hospital medicine has come to evaluate the patient in the emergency department. Unfortunately we do not have Trelegy in the emergency department. Thus I have sent prescriptions in for Trelegy a rescue inhaler steroids and doxycycline to the patient's pharmacy. <Rosendo Marks MD - Last Filed: 05/09/24 22:09> Vital Signs Vital Signs: 05/09/24 19:40 05/09/24 20:00 05/09/24 20:38 Temperature 97.8 F Temperature Source Oral Pulse Rate 98 H 102 H Pulse Rate [Left] 96 H Respiratory Rate 18 Blood Pressure 153/92 H 140/71 Blood Pressure [Right Arm] 150/94 H Blood Pressure Mean [Right Arm] 112 Blood Pressure Source [Right Arm] Automatic Cuff Blood Pressure Position [Right Arm] Sitting 02 Sat by Pulse Oximetry 97 94 L 92 L Oxygen Delivery Method Room Air 05/09/24 21:00 05/09/24 21:30 05/09/24 21:54 Temperature 98.2 F Temperature Source Pulse Rate 97 H 108 H 95 H Pulse Rate [Left] Respiratory Rate 18 Blood Pressure 126/67 145/102 H 145/102 H Blood Pressure [Right Arm] Blood Pressure Mean [Right Arm] Blood Pressure Source [Right Arm] Blood Pressure Position [Right Arm] 02 Sat by Pulse Oximetry 90 L 94 L Oxygen Delivery Method Room Air Lab Data Labs: Lab Results 05/09/24 19:40: WBC 9.1, RBC 5.40, Hgb 15.8, Hct 44.3, MCV 82.0, MCH 29.3, MCHC 35.7 H, RDW 13.1, Plt Count 198, MPV 9.7, Neut % (Auto) 81.2 H, Lymph % (Auto) 10.0, [place] % (Auto) 7.1, Eos % (Auto) 0.5, Baso % (Auto) 0.7, Neut # (Auto) 7.4, Lymph # (Auto) 0.9, [place] # (Auto) 0.7, Eos # (Auto) 0.1, Baso # (Auto) 0.1, PT 11.0, INR 0.98, Sodium 136, Potassium 4.2, Chloride 103, Carbon Dioxide 22, Anion Gap 15.2 H, BUN 17, Creatinine 0.90, Estimated Creat Clear 76, Estimated GFR 85, Est GFR ( Amer) 103, Glucose 87, Calcium 9.5, Magnesium 1.4 L, Total Bilirubin 1.1, AST 29, ALT 20, Alkaline Phosphatase 79, Troponin I < 0.01, Total Protein 7.3, Albumin 4.2, Globulin 3.1, Albumin/Globulin Ratio 1.4, HIV Ag/Ab Combo Qual Negative 05/09/24 19:56: VBG pH 7.39, VBG pCO2 36.5, VBG pO2 49.2 H, VBG HCO3 21.4 L, VBG Total CO2 22.5 L, VBG O2 Saturation 86.6 H, VBG Base Excess -3.6 L, VBG Lactic Acid 1.7 05/09/24 20:51: SARS-CoV-2 (PCR) Not detected, Influenza A Untype (PCR) Not detected, Influenza Type B (PCR) Not detected Response Orders (Tests/Meds): ED MEDICATIONS Generic Name Dose Route Start Last Admin Trade Name Freq PRN Reason Stop Dose Admin Magnesium Sulfate 2 gm in 50 mls @ 50 mls/hr 05/09/24 21:10 05/09/24 21:25 Magnesium Sulfate 2gm/50ml Premix IV 05/09/24 22:09 50 mls/hr ONCE ONE Administration Discontinued Medications Generic Name Dose Route Start Last Admin Trade Name Freq PRN Reason Stop Dose Admin Acetaminophen 1,000 mg 05/09/24 20:14 05/09/24 20:18 Acetaminophen 500mg Tab PO 05/09/24 20:15 1,000 mg ONCE ONE Administration Albuterol/Ipratropium 9 ml 05/09/24 19:37 05/09/24 19:48 Ipratropium/Albuterol 3 Ml Neb IH 05/09/24 19:38 9 ml ONCE ONE Administration Diphenhydramine HCl 50 mg 05/09/24 21:04 05/09/24 21:15 Diphenhydramine 50mg/Ml Vial IV 05/09/24 21:05 50 mg ONCE ONE Administration Doxycycline Hyclate 100 mg 05/09/24 21:46 05/09/24 21:55 Doxycycline Hycl 100 Mg Tablet PO 05/09/24 21:47 100 mg ONCE ONE Administration Ibuprofen 800 mg 05/09/24 20:14 05/09/24 20:18 Ibuprofen 400 Mg Tablet PO 05/09/24 20:15 800 mg ONCE ONE Administration Iopamidol 70 ml 05/09/24 21:06 05/09/24 21:15 Iopamidol-370 (76%);100ml Bottle IV 05/09/24 21:07 70 ml ONCE ONE Administration Methocarbamol 500 mg 05/09/24 21:04 05/09/24 21:15 Methocarbamol 500mg Tablet PO 05/09/24 21:05 500 mg ONCE ONE Administration Prochlorperazine Edisylate 5 mg 05/09/24 21:04 05/09/24 21:16 Prochlorperazine 10mg/2ml Vial IV 05/09/24 21:05 5 mg ONCE ONE Administration Sodium Chloride 50 ml 05/09/24 21:06 05/09/24 21:14 0.9 % Sodium Chloride 50 Ml Vial IV 05/09/24 21:07 50 ml ONCE ONE Administration Sodium Chloride 10 ml 05/09/24 21:06 05/09/24 21:15 Sodium Chloride 0.9% 10ml Syr (Rad Only) IV 05/09/24 21:07 10 ml ONCE ONE Administration ORDERS Category Date Time Status CT angio chest PE protocol Stat Cat Scan 05/09/24 19:37 Completed BNP [NT Pro Brain Natriuretic Pep.] Stat Lab 05/09/24 19:40 Received CBC w/Auto Diff [Complete Blood Count Auto Diff] Stat Lab 05/09/24 19:40 Completed CMP [Comprehensive Metabolic Panel] Stat Lab 05/09/24 19:40 Completed HIV Combo Stat Lab 05/09/24 19:40 Completed Hep C Ab with Reflex to RNA Stat Lab 05/09/24 19:40 Received INR [Prothrombin Time INR] Stat Lab 05/09/24 19:40 Completed Magnesium Stat Lab 05/09/24 19:40 Completed Procalcitonin Stat Lab 05/09/24 19:40 Received Rapid PCR Covid and Flu A/B Stat Lab 05/09/24 20:51 Completed Trop I [Troponin I] Stat Lab 05/09/24 19:40 Completed Troponin I Q3H Lab 05/09/24 22:45 Ordered Troponin I Q3H Lab 05/10/24 01:45 Ordered VBG [Venous Blood Gas] Stat RT 05/09/24 19:56 Completed MDM Narrative Medical Decision Narrative: In summary patient is a 63-year-old male who presents to the emergency department for evaluation of dyspnea. Patient is initially hemodynamically stable with a blood pressure 150/94 pulse 96 breathing 18 times a minute satting at 97% on room air upon arrival, with a temperature of 97.8. Physical exam reveals diminished breath sounds in all 4 coburn with tight lung sounds within expiratory wheezes in all 4 coburn diminished at the bases but no increased work of breathing or accessory muscle use. Heart sounds normal patient is normal sinus rhythm on the bedside monitor. Differential diagnosis includes COPD exacerbation versus viral or bacterial pneumonia versus ACS etc. Initial workup will be conducted with hematologic labs VBG CT PE protocol respiratory swabs. Initial interventions include DuoNeb and patient received 125 Solu-Medrol via EMS prior to arrival. Initial workup reviewed by me shows his white count is 9.1 with no left shift, INR 0.98, VBG shows a pH 7.39 with a venous blood gas lactic acid 1.7 and a pCO2 of 36.5, CMP is significant for a gap of 15.2 and a mag of 1.4 the remainder of his hematologic labs are nonactionable. Upon repeat evaluation patient had improvement in his breath sounds and he now has good air movement however his oxygen saturation has stayed around 89 despite steroids and breathing treatments. Upon reevaluation patient is now satting at 92% on room air has no increased work of breathing. I had interactive discussion with hospital medicine regarding patient management and hospital medicine has come to evaluate the patient in the emergency department. Unfortunately we do not have Trelegy in the emergency department. Thus I have sent prescriptions in for Trelegy a rescue inhaler steroids and doxycycline to the patient's pharmacy. I was consulted by the ANNA, and we discussed the complexity of the problems being addressed. I approved the treatment and management plan for this patient's care in the Emergency Department, thus performing a substantive portion of the medical decision making. I independently examined and interviewed patient. On reevaluation, he states that he is feeling much better. Patient no longer requiring oxygen saturating 94 to 98% on room air. No longer tachypneic. Tachycardia resolved to the mid 90s. Lungs are still wheezy, but much improved. Regarding social determinants of health, patient states that he does not know if he will have a ride home. Patient states that he was unable to call family members and secure a ride home. I also spoke to patient about his security and being able to obtain medications after being sent home and he states he will be able to get a ride to the pharmacy tomorrow to hop picker his medications in order to make sure he is improving. Patient does feel safe at home. Med sent to pharmacy and patient discharged with close return precautions. Rosendo Marks MD
[2024-05-09 19:40] VITALS: BP 150/94; PULSE 96; RESP 18; TEMP 36.6; O2SAT 97; BMI 22.0
[2024-05-09] MEDS: IPRATROPIUM/ALBUTEROL 3 ML NEB 9 ML IH (19:48)
[2024-05-09 19:57] LABS: Lactate Venous 1.7 mmol/L (0.4-2.0); VBG Base Excess -3.6 mmol/L (-2.4-2.3); VBG HCO3 21.4 mmol/L (23-30); VBG Oxygen Saturation 86.6 % (50-70); VBG PCO2 36.5 mmol/L (35-51); VBG PH 7.39 mmol/L (7.31-7.41); VBG PO2 49.2 mmol/L (28-40); VBG Total CO2 22.5 mmol/L (23-27)
[2024-05-09 19:57] LABS: Basophils # 0.1 K/mm3 (0-0.2); Basophils % 0.7 % (0.1-2.0); Eosinophils # 0.1 K/mm3 (0.0-0.4); Eosinophils % 0.5 % (0.1-12.0); Hematocrit 44.3 % (42.0-52.0); Hemoglobin 15.8 g/dL (14.1-18.0); Lymphocytes # 0.9 K/mm3 (0.7-4.5); Mean Corpuscular HGB Conc 35.7 g/dL (31.8-35.4); Mean Corpuscular Hemoglobin 29.3 pg (27.0-31.2); Mean Platelet Volume 9.7 fl (7.4-10.4); Monocytes # 0.7 K/mm3 (0.1-1.0); Monocytes % 7.1 % (1.7-9.3); Neutrophils # 7.4 K/mm3 (1.8-7.8); Neutrophils % 81.2 % (37.0-80.0); Platelet Count 198 K/mm3 (142-424); Red Cell Distribution Width 13.1 % (11.5-17.5); White Blood Count 9.1 K/mm3 (4.8-10.8)
[2024-05-09 20:00] VITALS: BP 153/92; PULSE 98; O2SAT 94
[2024-05-09 20:03] LABS: INR 0.98 (0.9-1.1)
[2024-05-09] MEDS: IBUPROFEN 400 MG TABLET 800 MG PO (20:18)
[2024-05-09] MEDS: ACETAMINOPHEN 500MG TAB 1000 MG PO (20:18)
[2024-05-09 20:38] VITALS: BP 140/71; PULSE 102; O2SAT 92
[2024-05-09 20:52] LABS: HIV Combo NEGATIVE (Negative)
[2024-05-09 20:57] LABS: Albumin Level 4.2 g/dl (3.5-5.0); Chloride 103 mmol/L (98-107); Potassium 4.2 mmoL/L (3.5-5.1); Sodium 136 mmol/L (136-145)
[2024-05-09 20:59] LABS: Alanine Aminotransferase 20 U/L (12-78); Alkaline Phosphatase 79 U/L (38-126); Anion Gap 15.2 mEq/L (5-15); Aspartate Amino Transferase 29 U/L (17-59); Bilirubin,Total 1.1 mg/dl (0.2-1.3); Blood Urea Nitrogen 17 mg/dl (9-20); Carbon Dioxide 22 mmol/L (22.0-30.0); Creatinine Clearance Estimated 76 mL/min (50-200); Estimated Glomerular Filt Rate 85 ml/min (>60); GFR (African American) 103 ML/MIN (>60)
[2024-05-09 20:59] LABS: Coronavirus 19, PCR Not Detected (NotDetected); Influenza A, PCR Not Detected (NotDetected); Influenza B, PCR Not Detected (NotDetected)
[2024-05-09 21:00] VITALS: BP 126/67; PULSE 97; O2SAT 90
[2024-05-09 21:00] LABS: Albumin/Globulin Ratio 1.4 (1.1-1.8); Calcium 9.5 mg/dl (8.4-10.2); Globulin 3.1 g/dL (1.3-3.2); Glucose 87 mg/dl (74-100); Magnesium 1.4 mg/dl (1.6-2.3); Total Protein,Serum 7.3 g/dl (6.3-8.2)
[2024-05-09 21:12] LABS: Troponin I < 0.01 ng/ml (0.00-0.034)
[2024-05-09] MEDS: 0.9 % SODIUM CHLORIDE 50 ML VIAL IV (21:14)
[2024-05-09] MEDS: diphenhydrAMINE 50MG/ML VIAL 50 MG IV (21:15)
[2024-05-09] MEDS: SODIUM CHLORIDE 0.9% 10ML SYR (RAD ONLY) 10 ML IV (21:15)
[2024-05-09] MEDS: IOPAMIDOL-370 (76%);100ML BOTTLE 70 ML IV (21:15)
[2024-05-09] MEDS: METHOCARBAMOL 500MG TABLET 500 MG PO (21:15)
[2024-05-09] MEDS: PROCHLORPERAZINE 10MG/2ML VIAL 5 MG IV (21:16)
[2024-05-09] MEDS: MAGNESIUM SULFATE IN WATER 2 GM/50 ML PIGGYBACK IV (21:25)
[2024-05-09 21:30] VITALS: BP 145/102; PULSE 108; O2SAT 94
[2024-05-09 21:54] VITALS: BP 145/102; PULSE 95; RESP 18; TEMP 36.8; O2SAT 99
[2024-05-09] MEDS: DOXYCYCLINE HYCL 100 MG TABLET PO (21:55)
[2024-05-09 22:15] LABS: NT Pro Brain Natriuretic Pep. 32.8 pg/mL (0-125)
[2024-05-09 22:23] LABS: Procalcitonin 0.056 ng/mL (0.0-2.0)
[2024-05-11 05:10] LABS: HCV Ab Non Reactive (Non Reactive)
== END 2024-05-09 22:54 | disposition admitted as inpatient to this hospital (09) ==
PROVIDERS: Physician Assistant; Emergency Provider Emergency Medicine
DX: E83.42 Hypomagnesemia (principal); J96.01 Acute respiratory failure with hypoxia; J44.1 Chronic obstructive pulmonary disease with (acute) exacerbation; R05.9 Cough, unspecified
CPT/HCPCS: 71275; 80053; 82803; 83735; 83880; 84145; 84484; 85025; 85610; 86803; 87389; 87636; 96365; 96374; 96375; 99291; J0780; J1200; J3475; J7620; Q9967